=== PATIENT | male | born 2000 | race Hispanic/Latino ===

== ENCOUNTER 2020-06-13 18:15 | Emergency (ER) | payer OTHER ==
[~2020-06-13] VITALS: Ht 175.3 cm; Wt 84.8 kg
[2020-06-13] MEDS ORDERED: MUCI600T31 PO (19:15)
[2020-06-13] MEDS ORDERED: PRED20TA PO (20:23)
[2020-06-13] MEDS ORDERED: BENA25CA4 PO (20:23)
[2020-06-13] MEDS ORDERED: diphenhydrAMINE 50MG CAP PO ONE (20:25)
[2020-06-13] MEDS ORDERED: predniSONE 20 MG TAB PO ONE (20:25)
[2020-06-13 20:26] VITALS: BP 134/62
== END 2020-06-13 20:31 | disposition home or self-care (01) ==
LOC: M ED 18:15
DX: L50.0 Allergic urticaria (principal); F17.200 Nicotine dependence, unspecified, uncomplicated